=== PATIENT | male | born 1985 | race Caucasian/White ===

== ENCOUNTER 2017-06-18 02:51 | Emergency (ER) | payer OTHER ==
[~2017-06-18] VITALS: Ht 175.3 cm; Wt 99.8 kg
--- OUTSIDE RECORDS SUMMARY | 2017-06-18 03:01 | External Medical Summary Rpt | CCD ---
Author Author , FELIPE Organization FELIPE Address Unknown Phone [email or web address] [facility] Care Team Providers Care Pony Worker Name Role Phone [facility] Unavailable Unavailable [facility], [facility] ALISON ANT, ALISON Unavailable Unavailable ANT MIGUEL VIC, MIGUEL VIC Unavailable Unavailable INDEPENDENT Unavailable Unavailable ANESTHESIOLOGIST, INDEPENDENT ANESTHESIOLOGIST KLEEDY CHANELL, Unavailable Unavailable KLEIMEYER CHANELL MINION REINIER, MINION Unavailable Unavailable REINIER GURVINDER KELLEY, GURVINDER Unavailable Unavailable KELLEY NEILS SANDRA, NEILS SANDRA Unavailable Unavailable ANDREW CELINE, Unavailable Unavailable [facility] Unavailable Unavailable OF [facility], [facility] [place], [facility] Unavailable Unavailable JAM [facility] Unavailable Unavailable AMBULANCE, [facility] Unavailable Unavailable AMBULANCE, [facility] [place] Unavailable Unavailable PHYSICIANS, [facility] [place] [facility] [place] Unavailable Unavailable ALTHEA, [facility] 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 GASTRITIS&G [place] ASTRODUODIT ALTHEA IS W/O MENTION HEMORR 15213 UNSPECIFIED 10-06-2014 [facility] [place] ARTHROPATHY ALTHEA ANKLE AND FOOT V1301 PERSONAL 10-06-2014 [facility] [place] URINARY ALTHEA CALCULI V1582 PERS HX 10-06-2014 [facility]. TOBACCO USE [facility] 7245 UNSPECIFIED 09-12-2014 [facility] 6824 CELLULITIS& 03-08-2014 INDEPENDENT ABSCESS OF HAND EXCEPT ANESTHESIOL OGIST FINGERS&[place] [address] SWELLING OF 03-07-2014 [facility]B [facility] 6826 CELLULITIS 03-05-2014 [facility] AND ABSCESS AMBULANCE OF LEG EXCEPT FOOT 13777 UNSPECIFIED 03-05-2014 MINION REINIER INFECTIVE ARTHRITIS SITE UNSPECIFIED 84111 PAIN IN 03-05-2014 [facility] [place], HAND AMBULANCE Procedures Procedure DOS Code Location Performer Comment RADEX 28429 TALA MIGUEL VIC ANKLE 5 LTH COMPLETE ORTHOPAE MINIMUM 3 VIEWS UNCLASSIF J3490 [facility] IED DRUGS [place] RADEX 14738 RADIOLOGY NEILS SANDRA SPINE 5 LUMBOSACR ASSOCIATE AL 2/3 S OF [facility] VIEWS ANES 79496 INDEPENDE HEREDIA INTEG 4 NT N ANT EXTREMITI ANESTHESI ES ANT OLOGIST TRUNK & PERINEUM NOS MRI UPPER 41758 RADIOLOGY ROEBKER EXTREM 4 JAM OTHER ASSOCIATE THAN JT S OF [facility] W/O & W/CONTRAS INITIAL 42683 [facility] 4 S DISEASE CELINE CARE/DAY 70 CONSULTAN MINUTES AMBULANCE A0428 RURAL/MET RURAL/MET SERVICE 4 RO RO BLS AMBULANCE AMBULANCE NONEMERGE NCY TRANSPORT RADEX 01242 MINION KLEIMEYER HAND 4 REINIER CHANELL MINIMUM 3 VIEWS ALS A0398 RURAL/MET RURAL/MET ROUTINE 4 RO RO DISPOSABL AMBULANCE AMBULANCE E SUPPLIES GROUND A0425 RURAL/MET RURAL/MET MILEAGE 4 RO RO PER AMBULANCE AMBULANCE STATUTE MILE INCISION 98252 ST [facility] & 4 [place] ANT DRAINAGE MED CTR ABSCESS COMPLICAT ED/MULTIP LE Encounters Encounter Start End Date Code Location Performer Type Date OFFICE 76346 [facility] 5 5 [place] VISIT 15 PHYSICIAN MINUTES S OFFICE 15455 TALA MIGUEL VIC CONSULTAT 5 5 LT ION ORTHOPAE NEW/ESTAB PATIENT [address] - 5 5 [place] EMERGENCY 29059 [facility] 5 5 [place] VISIT LOW/MODER SEVERITY OFFICE 45434 [facility] 5 5 [place] VISIT 15 PHYSICIAN MINUTES S EMERGENCY 67714 [facility] 4 [facility] [place] [facility] T VISIT MODERATE SEVERITY
--- OUTSIDE RECORDS SUMMARY | 2017-06-18 03:01 | External Medical Summary Rpt | CCD ---
Author Author , FELIPE Organization FELIPE Address Unknown Phone [email or web address] Care Team Providers Care Venetian Blind Tape Cutter Name Role Phone MARISOL KWA, MARISOL Unavailable Unavailable KWA [facility] Unavailable Unavailable [facility], [facility] ALISON ANT, ALISON Unavailable Unavailable ANT MIGUEL VIC, MIGUEL VIC Unavailable Unavailable INDEPENDENT Unavailable Unavailable ANESTHESIOLOGIST, INDEPENDENT ANESTHESIOLOGIST KLEEDY CHANELL, Unavailable Unavailable KLEEDY CHANELL MINION REINIER, MINION Unavailable Unavailable REINIER GURVINDER KELLEY, GURVINDER Unavailable Unavailable KELLEY NEILS SANDRA, NEILS SANDRA Unavailable Unavailable ANDREW CELINE, Unavailable Unavailable [facility] Unavailable Unavailable OF [facility], [facility] [place], AUTUMN Unavailable Unavailable CHLOE [facility] Unavailable Unavailable AMBULANCE, [facility] Unavailable Unavailable AMBULANCE, [facility] [place] Unavailable Unavailable PHYSICIANS, [facility] [place] [facility] [place] Unavailable Unavailable ALTHEA, STMarco MEJIA ALTHEA Purpose Continuity of Care Document - 09-25-2013 through 2016 Problems Code Diagnosis DOS Provider Status 6819 11-13-2014 [facility] [place] [facility] 58020 11-13-2014 [facility] [place] [facility] 7962 11-13-2014 [facility] [place] PHYSIC[facility]ANS 71325 10-09-2014 [facility]TH[facility] 21555 10-06-[address] [facility] [place] ALTHEA 13410 10-06-2014 [facility] [place] ALTHEA V1301 10-06-2014 [facility] [place] ALTHEA V1582 10-06-2014 [facility] [place] ALTHEA 7245 09-12-2014 [facility] 6824 03-08-2014 INDEPENDENT ANESTHESIOL OGIST 86566 03-07-2014 [facility] 6826 03-05-2014 [facility] 06156 03-05-2014 MINION REINIER 44846 03-05-2014 [facility] Procedures Procedure DOS Code Location Performer Comment 82204 TALA MIGUEL VIC 5 [facility] ORTHOPAE J3490 [facility] [address] [place] [address] RADIOLOGY NEILS SANDRA 5 ASSOCIATE S OF [facility] 84118 INDEPENDE MARISOL 4 NT KWA ANESTHESI OLOGIST 58218 RADIOLOGY ROEBKER 4 JAM ASSOCIATE S OF [facility] 87351 INFECTIOU ANDREW 4 S DISEASE [facility] A0398 RURAL/MET RURAL/MET 4 RO RO AMBULANCE AMBULANCE A0425 RURAL/MET RURAL/MET 4 RO RO AMBULANCE AMBULANCE A0428 RURAL/MET RURAL/MET 4 RO RO AMBULANCE AMBULANCE 29554 JESSE RANDOLPH 4 REINIER CHANELL 37862 [facility] [place] [facility] Encounters Encounter Start End Date Code Location Performer Type Date [facility] - 5 [place]
--- OUTSIDE RECORDS SUMMARY | 2017-06-18 03:01 | External Medical Summary Rpt | CCD ---
Author Author , FELIPE Organization FELIPE Address Unknown Phone [email or web address] Care Team Providers Care Licensed Loan Officer Name Role Phone MARISOL KWA, MARISOL Unavailable [...] [facility] Unavailable Unavailable OF [facility], [facility] [place], AUTUMN Unavailable Unavailable CHLOE [facility] Unavailable Unavailable AMBULANCE, [facility] Unavailable Unavailable AMBULANCE, [facility] [place] Unavailable Unavailable PHYSICIANS, [facility] [place] [facility] [place] Unavailable Unavailable ALTHEA, STMarco MEJIA ALTHEA Purpose Continuity of Care Document - 09-25-2013 through 2016 Problems Code Diagnosis DOS Provider Status 6819 11-13-2014 [facility] [place] [facility] 51482 11-13-2014 [facility] [place] [facility] 7962 11-13-2014 [facility] [place] [facility] 84138 10-09-2014 [facility] 69117 10-06-[address] [facility] [place] ALTHEA 05388 10-06-[address] [facility] [place] ALTHEA V1301 10-06-[address] [facility] [place] ALTHEA V1582 10-06-[address] [facility] [place] ALTHEA 7245 09-12-2014 [facility] 6824 03-08-2014 INDEPENDENT ANESTHESIOL OGIST 52485 03-07-2014 [facility] 6826 03-05-2014 [facility] AMBULANCE 74925 03-05-2014 MINION REINIER 09866 03-05-2014 [facility] AMB[facility]ANCE Procedures Procedure DOS Code Location Performer Comment 97497 TALA MIGUEL VIC 5 [facility] ORTHOPAE J3490 [facility] [address] [place] [address] RADIOLOGY NEILS SANDRA 5 ASSOCIATE S OF [facility] 53170 INDEPENDE MARISOL 4 NT KWA ANESTHESI OLOGIST 75123 RADIOLOGY ROEBKER 4 JAM ASSOCIATE S OF [facility] 39697 INFECTIOU ANDREW [address] [facility] A0398 RURAL/MET RURAL/MET 4 RO RO AMBULANCE AMBULANCE A0425 RURAL/MET RURAL/MET 4 RO RO AMBULANCE AMBULANCE A0428 RURAL/MET RURAL/MET 4 RO RO AMBULANCE AMBULANCE 96578 JESSE RANDOLPH 4 REINIER CHANELL 78831 [facility] [place] [facility] Encounters Encounter Start End Date Code Location Performer Type Date [facility] - 5 [place]
--- OUTSIDE RECORDS SUMMARY | 2017-06-18 03:01 | External Medical Summary Rpt | CCD ---
Author Author , FELIPE Organization FELIPE Address Unknown Phone [email or web address] Care Team Providers Care Cv Tech Name Role Phone [facility] Unavailable Unavailable [facility], [facility] ALISON ANT, ALISON Unavailable Unavailable ANT MIGUEL VIC, MIGUEL VIC Unavailable Unavailable INDEPENDENT Unavailable Unavailable ANESTHESIOLOGIST, INDEPENDENT ANESTHESIOLOGIST KLEEDY CHANELL, Unavailable Unavailable KLEIMEYER CHANELL MINION REINIER, MINION Unavailable Unavailable REINIER GURVINDER KELLEY, GURVINDER Unavailable Unavailable KELLEY NEILS SANDRA, NEILS SANDRA Unavailable Unavailable ANDREW CELINE, Unavailable Unavailable [facility] Unavailable Unavailable OF [facility], 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 GASTRITIS&G [place] ASTRODUODIT ALTHEA IS W/O MENTION HEMORR 40149 UNSPECIFIED 10-06-2014 [facility] [place] ARTHROPATHY ALTHEA ANKLE AND FOOT V1301 PERSONAL 10-06-2014 [facility] [place] URINARY ALTHEA CALCULI V1582 PERS HX 10-06-2014 [facility]. TOBACCO USE [facility] 7245 UNSPECIFIED 09-12-2014 [facility] 6824 CELLULITIS& 03-08-2014 INDEPENDENT ABSCESS OF HAND EXCEPT ANESTHESIOL OGIST FINGERS&R[place] [address] SWELLING OF 03-07-[address] [facility] [address] [facility] 6826 CELLULITIS 03-05-2014 [facility] AND ABSCESS AMBULANCE OF LEG EXCEPT FOOT 04305 UNSPECIFIED 03-05-2014 MINION REINIER INFECTIVE ARTHRITIS SITE UNSPECIFIED 43024 PAIN IN 03-05-2014 [facility] JOINT, HAND AMBULANCE Procedures Procedure DOS Code Location Performer Comment RADEX 46661 TALA MIGUEL VIC ANKLE 5 LTH COMPLETE ORTHOPAE MINIMUM 3 VIEWS UNCLASSIF J3490 [facility] IED DRUGS 5 [place] RADEX 69903 RADIOLOGY NEILS SANDRA SPINE 5 LUMBOSACR ASSOCIATE AL 2/[address] [facility] VIEWS ANES 38136 INDEPENDE HEREDIA INTEG 4 NT N ANT EXTREMITI ANESTHESI ES ANT OLOGIST TRUNK & PERINEUM NOS MRI UPPER 66693 RADIOLOGY ROEBKER EXTREM 4 JAM OTHER ASSOCIATE THAN JT S OF [facility] W/O & W/CONTRAS INITIAL 77517 [facility] 4 S DISEASE CELINE CARE/DAY 70 CONSULTAN MINUTES AMBULANCE A0428 RURAL/MET RURAL/MET SERVICE 4 RO RO BLS AMBULANCE AMBULANCE NONEMERGE NCY TRANSPORT RADEX 20864 MINION KLEIMEYER HAND 4 REINIER CHANELL MINIMUM 3 VIEWS ALS A0398 RURAL/MET RURAL/MET ROUTINE 4 RO RO DISPOSABL AMBULANCE AMBULANCE E SUPPLIES GROUND A0425 RURAL/MET RURAL/MET MILEAGE 4 RO RO PER AMBULANCE AMBULANCE STATUTE MILE INCISION 42422 [facility] & 4 [place] ANT DRAINAGE MED CTR ABSCESS COMPLICAT ED/MULTIP LE Encounters Encounter Start End Date Code Location Performer Type Date OFFICE 90648 [facility] 5 5 [place] VISIT 15 PHYSICIAN MINUTES S OFFICE 35801 TALA MIGUEL VIC CONSULTAT 5 5 LT ION ORTHOPAE NEW/ESTAB PATIENT [address] - 5 5 [place] EM[place] 42994 [facility] 5 5 [place] VISIT LOW/MODER SEVERITY OFFICE 58695 [facility] 5 5 [place] VISIT 15 PHYSICIAN MINUTES S EMERGENCY 32145 [facility] [place] [facility] VISIT MODERATE SEVERITY
--- OUTSIDE RECORDS SUMMARY | 2017-06-18 03:02 | External Medical Summary Rpt ---
Author Author FELIPE Bolden, [employer] Organization [employer] Address Unknown Phone Unavailable Results STRP A DNA Results Observa Value Referen Units Interpr Notes Date tion ce etation Range Group A Throat No No No No Jun 13 informa informa informa informa 2014 Strepto tion in tion in tion in tion in 1:04 PM coccus source source source source specime data data data data n Group A Negativ No No No No Jun 13 e informa informa informa informa 2014 Strepto tion in tion in tion in tion in 1:04 PM coccus source source source source DNA data data data data Group A Negativ No No No No Jun 13 e for informa informa informa informa 2014 Strepto Group A tion in tion in tion in tion in 1:04 PM coccus source source source source Interp Strepto data data data data coccus DNA. A negativ e result does not rule out the presenc e of Group A Strepto coccus DNA in concent rations below the level of detecti on by the assay.T est methodo logy by DNA probe. The perform ance charact eristic s of this test were validat ed by [facility] are Laborat ory. This laborat ory is authori benny under the Clinica l Laborat ory Improve ment Amendme nts (CLIA) as qualifi ed to perform high-co mplexit y testing . Complia nce stateme nt is availab le in the Laborat ory. Group A Negativ No No No No Jun 13 e informa informa informa informa 2014 Strepto tion in tion in tion in tion in 1:04 PM coccus source source source source Interp data data data data Strep Scn Observa Value Referen Units Interpr Notes Date tion ce etation Range Strep Negativ No No No No Jun 12 Screen e informa informa informa informa 2015 tion in tion in tion in tion in 1:03 PM source source source source data data data data XR LUMBAR SPINE AP AND LATERAL Observa Value Referen Units Interpr Notes Date tion ce etation Range Three No No No No Sep 12 views informa informa informa informa 2015 XR tion in tion in tion in tion in 3:46 PM LUMBAR source source source source SPINE data data data data AP AND LATERAL Sep 12, 2014 03:47:2 6 PM\.br\ \.br\HI STORY: -BACK PAIN.\. br\\.br \Compar e: CT abdomen and pelvis November 18, 2011\.b r\Sligh t anterio r wedging of T11 unchang ed\.br\ \.br\Im pressio n: No acute fractur e or osseous destruc tion. BMP Observa Value Referen Units Interpr Notes Date tion ce etation Range Sodium 139 136 - mmol/L No No Mar 08 145 informa informa 2013 tion in tion in 7:48 AM source source data data Potassi 4.1 3.5 - mmol/L No No Mar 08 um 5.0 informa informa 2013 [Moles/ tion in tion in 7:48 AM volume] source source in data data Serum or Plasma Chlorid 99 98 - mmol/L No No Mar 08 e 107 informa informa 2013 tion in tion in 7:48 AM source source data data Carbon 31 22 - 29 mmol/L High No Mar 08 dioxide informa 2013 , total tion in 7:48 AM source [Moles/ data volume] in Serum or Plasma Anion 9 7 - 16 mmol/L No No Mar 08 Gap informa informa 2013 tion in tion in 7:48 AM source source data data CALCIUM 9.3 8.6 - mg/dL No No Mar 08 .TOTAL 10.2 informa informa 2013 tion in tion in 7:48 AM source source data data Glucose 84 74 - mg/dL No No Mar 08 Lvl 100 informa informa 2013 tion in tion in 7:48 AM source source data data BUN 9 6 - 20 mg/dL No No Mar 08 informa informa 2014 tion in tion in 7:48 AM source source data data Creatin 1.00 0.67 - mg/dL No No Mar 08 ine 1.30 informa informa 2014 tion in tion in 7:48 AM source source data data MRI HAND RIGHT W WO CONTRAST Observa Value Referen Units Interpr Notes Date tion ce etation Range MRI No No No No Mar 07 RIGHT informa informa informa informa 2014 HAND tion in tion in tion in tion in 2:34 PM WITHOUT source source source source AND data data data data WITH CONTRAS T\.br\\ .br\03/07\. br\\.br \Compar e: Plain radiogr aphs from March 05, 2014\.b r\\.br\ CLINICA L HISTORY : right hand swellin g and redness for one week.\. br\\.br \Findin gs;\.br \\.br\P ostcont rast images perform ed with 20 mL MultiHa nce\.br \\.br\T here is promine nt diffuse subcuta neous edema and swellin g over the dorsum\ .br\of the hand\.b r\milly tible with celluli tis.\.b r\\.br\ There is a multilo culated fluid collect ion seen dorsall y extendi ng from\.b r\just below the base to\.br\ the midshaf t of the third and fourth metacar pals. The fluid collect ion\.br \measur es 4.5 cm\.br\ cranioc audal x 2.9 cm transve rse x 1.6 cm AP. There is an enhanci ng rim\.br \and slight\ .br\mul tilocul ation. It is predomi nantly dorsal to the extenso r tendons of the\.br \third and fourth\ .br\dig its and extends adjacen t to the second digit extenso r tendons as well.\. br\It is highly\ .br\mitchel picious for abscess .\.br\\ .br\Mar row signal is normal in the osseous structu res with no evidenc e of\.br\ osteomy elitis. No\.br\ evidenc e of increas ed joint fluid or septic arthrit is. Laxer tendons \.br\ap pear normal. Median\ .br\ner ve normal. \.br\\. br\The extenso r tendons themsel ves are intact\ .br\\.b r\IMPRE SSION:\ .br\\.b r\4.5 x 2.9 x 1.6 cm fluid collect ion in the dorsum of the right hand\.b r\predo minatel y at the level\. br\of the base to the midshaf t of the third and fourth metacar pals and\.br \immedi ately dorsal and\.br \encirc ling the third and fourth extenso r tendons . The fluid collect ion\.br \lies approxi mately 8 to\.br\ 9 mm below the skin surface and is highly suspici ous for abscess .\.br\\ .br\Dif fuse celluli tis of the dorsum of the hand\.b r\\.br\ No evidenc e of osteomy elitis or septic arthrit is\.br\ \.br\ is report was called to the patient 's nurse shereen mobleyi lin this\.b r\readi ng by Dr. Yi \.br\at 2:49 p.m. SHAYNERUPESH Observa Value Referen Units Interpr Notes Date ti ce etation Range Hepatit NEG NEGATIV No No Perform Mar 09 is A E informa informa ed at: 2013, tion in tion in 7:51 PM Total-S source source [facility] OLS data data [facility]\.br\ [address], [address]\.br \ [place] [address] IR PICC INSERTION EQUAL OR > 5 YEARS Observa Value Referen Units Interpr Notes Date tion ce etation Range Shaina No No No No Mar 06 Markwor informa informa informa informa 2013, tion in tion in tion in tion in 4:16 PM PAHairC, source source source source dictati data data data data ng for Dr. Jarred Gonzales. \.br\\. br\DATE : Mar 06, 2014 04:16:5 4 PM:\.br \\.br\P ROCEDUR E: Ultraso und and fluoros copic-g uided PICC placeme nt.\.br \\.br\C LINICAL INDICAT IONS: 20-year -old male with history of IV drug use and\.br \infect ion. PICC line\.b r\reque sted for long-te rm IV antibio tics.\. br\\.br \FINDIN GS:\.br \1. Procedu re perform ed by Shaina lopez PA-C, with Dr. Jarred Gonzales\ .br\sup ervisin g.\.br\ 2. Ultraso und guidanc e was used to identif y the left upper arm veins. The\.br \left basilic vein\.b r\found to be widely patent. Using all element s of maximal sterile barrier \.br\te chnique . and after\. br\loca l anesthe rowdy was adminis tered, a 21-gaug e needle was used to punctur e\.br\t he left basilic \.br\ve in. Guidewi re success fully inserte d. Needle removed . Over the\.br \guidew isabelle, an introdu cer\.br \sheath was placed. The introdu cer and wire were removed , and through the\.br \sheath , a 4-Frenc h,\.br\ single lumen PICC was placed and advance d with the tip of the cathete r\.br\p osition ed within the\.br \cavoat rial junctio n as documen david with spot film imaging . Cathete r was cut\.br \to 40 cm prior to\.br\ inserti on. The sheath was removed . The cathete r was cut to length, \.br\as pirated , and flushed \.br\ap propria tely. The PICC was secured to the skin with a Stat-Lo ck device. A\.br\s terile dressin g was\.br \applie d.\.br\ 3. The patient tolerat ed the procedu re well without immedia te\.br\ complic ations. \.br\\. br\Tota l Fluoros copic Time: 0.2 minutes \.br\\. br\IMPR ESSION: \.br\1. Success ful, uncompl icated 4-Frenc h, single lumen PICC placeme nt with\.b r\ultra sound and\.br \fluoro scopic guidanc e.\.br\ \.br\No te: A permane nt recorde d image of the U/S image was created .\.br\\ .br\Dayna lopez PA-C/ Jarred Gonzales M.D. IR ULTRASOUND GUIDED VASCULAR ACCESS Observa Value Referen Units Interpr Notes Date tion ce etation Range Shaina No No No No Mar 06 Phill informa informa informa informa 2013, tion in tion in tion in tion in 4:16 PM LULA, source source source source dictati data data data data ng for Dr. Jarred Gonzales. \.br\\. br\DATE : Mar 06, 2014 04:16:5 4 PM:\.br \\.br\P ROCEDUR E: Ultraso und and fluoros copic-g uided PICC placeme nt.\.br \\.br\C LINICAL INDICAT IONS: 20-year -old male with history of IV drug use and\.br \infect ion. PICC line\.b r\reque sted for long-te rm IV antibio tics.\. br\\.br \FINDIN GS:\.br \1. Procedu re perform ed by Shaina lopez PA-C, with Dr. Jarred Gonzales\ .br\sup ervisin g.\.br\ 2. Ultraso und guidanc e was used to identif y the left upper arm veins. The\.br \left basilic vein\.b r\found to be widely patent. Using all element s of maximal sterile barrier \.br\te chnique . and after\. br\loca l anesthe rowdy was adminis tered, a 21-gaug e needle was used to punctur e\.br\t he left basilic \.br\ve in. Guidewi re success fully inserte d. Needle removed . Over the\.br \guidew isabelle, an introdu cer\.br \sheath was placed. The introdu cer and wire were removed , and through the\.br \sheath , a 4-Frenc h,\.br\ single lumen PICC was placed and advance d with the tip of the cathete r\.br\p osition ed within the\.br \cavoat rial junctio n as documen david with spot film imaging . Cathete r was cut\.br \to 40 cm prior to\.br\ inserti on. The sheath was removed . The cathete r was cut to length, \.br\as pirated , and flushed \.br\ap propria tely. The PICC was secured to the skin with a Stat-Lo ck device. A\.br\s terjodi sanderson g was\.br \applie d.\.br\ 3. The patient tolerat ed the procedu re well without immedia te\.br\ complic ations. \.br\\. br\Tota l Fluoros copic Time: 0.2 minutes \.br\\. br\IMPR ESSION: \.br\1. Success ful, uncompl icated 4-Frenc h, single lumen PICC placeme nt with\.b r\ultra sound and\.br \fluoro scopic guidanc e.\.br\ \.br\No te: A permane nt recorde d image of the U/S image was created .\.br\\ .br\Lis kaelyn lopez PA-C/ Jarred Gonzales M.D. Vanco Tr Observa Value Referen Units Interpr Notes Date tion ce etation Range Vanco 12.7 5.0 - mcg/mL High No Mar 06 Tr 10.0 informa 2013 tion in 1:35 PM source data HCV Filomena-SOLS Observa Value Referen Units Interpr Notes Date tion ce etation Range Hepatit 3 No No No Test Mar 10 is C informa informa informa Methodo 2014 Virus tion in tion in tion in logy: 7:47 AM Genotyp source source source [place] e-SOLS data data data RealTim e HCV Genotyp e II Assay.\ .br\Per formed at: [facility]\.br\ [address], [address]\.br \ [place] [address] HCV QT GR-SOLS Observa Value Referen Units Interpr Notes Date tion ce etation Range HCV RNA 53797 <15 IU/mL High No Mar 07 informa 2014 Quant-S tion in 7:26 PM OLS source data HCV RNA 4.83 <1.18 No High \.br\Mar 07 informa is test 2013 Log-ANNEMARIE tion in 7:26 PM S source utilize data s the [place] FDA approve d Yvette HCV Test Kit by RT-PCR. \.br\Pe rformed at: [facility]\.br\ [address], [address]\.br \ [place] [address] Hemogram Observa Value Referen Units Interpr Notes Date tion ce etation Range LEUKOCY 5.9 4.0 - x10(3)/ No No Mar 06 INES 11.0 mcL informa informa 2013 tion in tion in 6:31 AM source source data data Erythro 4.39 4.30 - x10(6)/ No Mar 06 cytes 5.81 mcL informa informa 2013 [#/volu tion in tion in 6:31 AM me] in source source Blood data data by Automat ed count Hemoglo 13.1 13.5 - gm/dL Low No Mar 06 bin 17.1 informa 2014 [Mass/v tion in 6:31 AM olume] source in data Blood Hematoc 37.4 38.9 - % Low No Mar 06 rit 51.6 informa 2014 [Volume tion in 6:31 AM source Fractio data n] of Blood by Automat ed count Erythro 85.3 82.5 - fL No Mar 06 cyte 99.8 informa informa 2014 mean tion in tion in 6:31 AM corpusc source source ular data data volume [Entiti c volume] by Automat ed count Erythro 29.8 27.0 - pg No No Mar 06 cyte 34.3 informa informa 2014 mean tion in tion in 6:31 AM corpusc source source ular data data hemoglo bin [Entiti c mass] by Automat ed count Erythro 34.9 32.1 - gm/dL No Mar 06 cyte 35.3 informa informa 2014 mean tion in tion in 6:31 AM corpusc source source ular data data hemoglo bin concent ration [Mass/v olume] by Automat ed count Erythro 13.8 11.5 - % No Mar 06 cyte 15.0 informa informa 2013 distrib tion in tion in 6:31 AM ution source source width data data [Ratio] by Automat ed count Platele 229 144 - x10(3)/ No No Mar 06 ts 423 mcL informa informa 2013 [#/volu tion in tion in 6:31 AM me] in source source Blood data data by Automat ed count MPV 6.7 6.8 - fL Low No Mar 06 10.8 informa 2014 tion in 6:31 AM source data Hep Prf-Ac Observa Value Referen Units Interpr Notes Date tion ce etation Range Add to blood in lab Hepatit Negativ Negativ No No No Mar 06 is B e e informa informa informa 2014 virus tion in tion in tion in 8:11 AM surface source source source Ag data data data [Presen ce] in Serum by Immunoa ssay Hep B Negativ Negativ No No No Mar 06 Core e e informa informa informa 2014 IgM tion in tion in tion in 8:10 AM source source source data data data Hepatit Negativ Negativ No No No Mar 06 is A e e informa informa informa 2014 virus tion in tion in tion in 8:10 AM Ab source source source [Units/ data data data volume] in Serum by Radioim munoass ay (MEENA) Hep C Positiv Negativ No Abnorma High Mar 06 Ab e e informa l / 2013 tion in cutoff 8:44 AM source ratio data (>= 5, Archite ct Anti-HC V). [facility] are Laborat ory recomme nds collect ing a new specime n and testing for Hepatit is C RNA Quantit ative PCR to confirm positiv ity and provide a baselin e viral load for monitor ing treatme nt efficac y. DOA Reflex Observa Value Referen Units Interpr Notes Date tion ce etation Range Cannabi Absent 50 No No No Mar 05 noid ng/mL informa informa informa 2014 Metabol tion in tion in tion in 2:23 PM ite source source source data data data Benzodi Absent 200 No No No Mar 05 azepine ng/mL informa informa informa 2013 s tion in tion in ti in 2:23 PM source source source data data data Cocaine Absent 150 No No No Mar 05 ng/mL informa informa informa 2013 Metabol tion in tion in ti in 2:23 PM ite source source source data data data Opiate Presump 300 No Abnorma Confirm Mar 05 300 tive ng/mL informa l ation 2013 Pos tion in to 2:23 PM source follow data from referen ce lab. Barbitu Absent 200 No No No Mar 05 rates ng/mL informa informa informa 2013 tion in tion in tion in 2:23 PM source source source data data data Ampheta Absent 500 No No No Mar 05 mines ng/mL informa informa informa 2013 tion in tion in ti in 2:23 PM source source source data data data Phencyc Absent 25 No No No Mar 05 lidine ng/mL informa informa informa 2013 tion in tion in tion in 2:23 PM source source source data data data Methado Absent 300 No No No Mar 05 ne and ng/mL informa informa informa 2013 Metabol tion in tion in ti in 2:23 PM ite source source source data data data Oxycodo Presump 100 No Abnorma Confirm Mar 05 ne Lvl tive ng/mL informa l ation 2013 Pos tion in to 2:23 PM source follow data from [facility] ce lab. 6 AM Absent 10 No No No Mar 05 (Heroin ng/mL informa informa informa 2013 ) tion in tion in tion in 2:23 PM source source source data data data Bupreno Absent 5 ng/mL No No No Mar 05 rphine informa informa informa 2014 Lvl tion in tion in tion in 2:23 PM source source source data data data Creatin 116.9 No mg/dL No \.br\Gr Mar 05 ine Urn informa informa eater 2013 tion in tion in than 2:23 PM source source 20: data data Consist ent with valid sample\ .br\Gre ater than 2 but less than 20: Possibl e dilutio n\.br\L ess than 2: Questio nable valid sample Procedu These No No No No Mar 05 re Note drug informa informa informa informa 2014 Reflex classes tion in tion in tion in tion in 2:23 PM have source source source source been data data data data screene d by renaldo laguna and are for medical purpose s only. The results should not be used for non-med ical purpose s. U OPIA CON-SOLS Observa Value Referen Units Interpr Notes Date tion ce etation Range 6-AM NEG Cutoff: ng/mL No Perform Feb 9 (Heroin 5 informa ed at: 2013 )-SOLS tion in 12:21 source [facility] PM data [facility]\.br\ [address], [address]br \ [place] [address] U NEG Cutoff: ng/mL No No Feb 9 Codeine 50 informa informa 2014 -SOLS tion in tion in 12:21 source source PM data data U NEG Cutoff: ng/mL No No Feb 9 Hydroco 50 informa informa 2014 done-SO tion in tion in 12:21 LS source source PM data data U NEG Cutoff: ng/mL No No Feb 9 Hydromo 50 informa informa 2013 rphone- tion in tion in 12:21 SOLS source source PM data data U 2097 Cutoff: ng/mL High No Feb 9 Morphin 50 informa 2013 e-SOLS tion in 12:21 source PM data U NEG Cutoff: ng/mL No No Feb 9 Oxycodo 50 informa informa 2013 ne-SOLS tion in tion in 12:21 source source PM data data U NEG Cutoff: ng/mL No No Feb 9 Oxymorp 50 informa informa 2013 fran-SO tion in tion in 12:21 LS source source PM data data U NEG Cutoff: ng/mL No No Feb 9 Norhydr 50 informa informa 2014 ocodone tion in tion in 12:21 source source PM data data U 94 Cutoff: ng/mL High No Feb 9 Noroxyc 50 informa 2014 odone-S tion in 12:21 OLS source PM data XR HAND RIGHT PA LATERAL AND OBLIQUE Observa Value Referen Units Interpr Notes Date tion ce etation Range XR HAND No No No No Feb 6 RIGHT informa informa informa informa 2014 PA tion in tion in tion in tion in 8:40 AM LATERAL source source source source AND data data data data OBLIQUE Mar 05, 2014 09:02:4 0 AM\.br\ \.br\Cl inical: -infect ion\.br \\.br\C OMPARIS ONS: None.\. br\\.br \FINDIN GS:\.br \\.br\T here is normal alignme nt of the right hand. There is diffuse soft tissue\ .br\swe lling of the right\. br\hand , most pronoun jodee along the dorsum. The joint spaces are maintai vivi.\.b r\There are no\.br\ radiopa que foreign bodies. There is no subcuta neous gas. There are no\.br\ acute fractur es or\.br\ osseous erosion s.\.br\ \.br\IM PRESSIO N:\.br\ \.br\Di ffuse soft tissue swellin g of the right hand. There is no underly ing gas\.br \or radiopa que\.br \foreig n bodies. CBC Observa Value Referen Units Interpr Notes Date tion ce etation Range LEUKOCY 10.9 4.0 - x10(3)/ No No Mar 05 INES 11.0 mcL informa informa 2013 tion in tion in 12:04 source source AM data data Erythro 5.32 4.30 - x10(6)/ No Mar 05 cytes 5.81 mcL informa informa 2013 [#/volu tion in tion in 12:04 me] in source source AM Blood data data by Automat ed count Hemoglo 16.0 13.5 - gm/dL No Mar 05 bin 17.1 informa informa 2013 [Mass/v tion in tion in 12:04 olume] source source AM in data data Blood Hematoc 45.8 38.9 - % No No Mar 05 rit 51.6 informa informa 2013 [Volume tion in tion in 12:04 source source AM Fractio data data n] of Blood by Automat ed count Erythro 86.1 82.5 - fL No Mar 05 cyte 99.8 informa informa 2013 mean tion in tion in 12:04 corpusc source source AM ular data data volume [Entiti c volume] by Automat ed count Erythro 30.1 27.0 - pg No Mar 05 cyte 34.3 informa informa 2013 mean tion in tion in 12:04 corpusc source source AM ular data data hemoglo bin [Entiti c mass] by Automat ed count Erythro 35.0 32.1 - gm/dL No No Mar 05 cyte 35.3 informa informa 2013 mean tion in tion in 12:04 corpusc source source AM ular data data hemoglo bin concent ration [Mass/v olume] by Automat ed count Erythro 14.1 11.5 - % No No Mar 05 cyte 15.0 informa informa 2013 distrib tion in tion in 12:04 ution source source AM width data data [Ratio] by Automat ed count Platele 293 144 - x10(3)/ No No Mar 05 ts 423 mcL informa informa 2013 [#/volu tion in tion in 12:04 me] in source source AM Blood data data by Automat ed count MPV 6.7 6.8 - fL Low No Mar 05 10.8 informa 2013 tion in 12:04 source AM data Auto Diff Observa Value Referen Units Interpr Notes Date tion ce etation Range Neutrop 81.3 No % No No Mar 05 hils informa informa informa 2013 [#/volu tion in tion in tion in 12:04 me] in source source source AM Blood data data data by Automat ed count Lymphoc 11.4 No % No No Mar 05 ytes informa informa informa 2013 [#/volu tion in tion in tion in 12:04 me] in source source source AM Blood data data data by Automat ed count Monocyt 6.4 No % No No Mar 05 es informa informa informa 2013 [#/volu tion in tion in tion in 12:04 me] in source source source AM Blood data data data by Automat ed count Eos 0.5 No % No No Mar 05 Percent informa informa informa 2013 tion in tion in tion in 12:04 source source source AM data data data Baso 0.4 No % No No Mar 05 Percent informa informa informa 2014 tion in tion in tion in 12:04 source source source AM data data data Neut# 8.9 1.8 - x10(3)/ High No Mar 05 7.7 mcL informa 2013 tion in 12:04 source AM data Lymph# 1.2 0.6 - x10(3)/ No No Mar 05 4.8 mcL informa informa 2013 tion in tion in 12:04 source source AM data data Roseau# 0.7 0.0 - x10(3)/ No No Mar 05 1.3 mcL informa informa 2013 tion in tion in 12:04 source source AM data data Eos# 0.1 0.0 - x10(3)/ No No Mar 05 0.5 mcL informa informa 2013 tion in tion in 12:04 source source AM data data Baso# 0.0 0.0 - x10(3)/ No No Mar 05 0.2 mcL informa informa 2013 tion in tion in 12:04 source source AM data data XR KNEE RIGHT AP LAT INT EXT OBLIQUES AND SUNRISE Observa Value Referen Units Interpr Notes Date tion ce etation Range 09/28/19 No No No No Sep 28 14\.br\ informa informa informa informa 2013 \.br\Fi tion in tion in tion in ti in 7:47 PM ve-view source source source source right data data data data knee exam:\. br\\.br \HISTOR Y: Clinica l celluli tis with recent progres jb of clinica l symptom s.\.br\ No compari son\.br \studie s.\.br\ \.br\Si gnifica nt diffuse celluli tis type inflamm atory changes involve the right\. br\knee with greates t\.br\i nvolvem ent in the prepate llar region. Focal prepate llar effusio n is not\.br \exclud ed. No focal\. br\frac ture or bony destruc tive process . If the patient has progres sive\.b r\clini citlaly symptom s, advise\ .br\fol lowup MR imaging with and without contras t\.br\\ .br\IMP RESSION : Signifi cant celluli tis type inflamm atory soft tissue changes \.br\of the right knee. No\.br\ focal fractur e.
--- OUTSIDE RECORDS SUMMARY | 2017-06-18 03:02 | External Medical Summary Rpt | CCD ---
Author Author , FELIPE WANG Address Unknown Phone [email or web address] Name Relationship Address Phone ALINA, Next Of Kin Unknown Unavailable PRANEETH Immunization Name Date Rout CVX Reac Dose Comm Prov Is Faci e tion ent ider Refu lity Give sed n Hep 07-1 52 999 Hist 1005 No 1005 A, 2-20 oric 00 00 adul 14 al t Info rmat ion - Sour ce Unsp ecif ied Hep 07-0 Intr 43 999 Hist 1005 No 1005 B, 8-20 amus oric 00 00 adul 14 cula al t r Info rmat ion - Sour ce Unsp ecif ied Hep 02-2 Intr 8 999 Hist H157 No H157 B, 6-19 amus oric ped/ 97 cula al adol r Info rmat ion - Sour ce Unsp ecif ied
--- OUTSIDE RECORDS SUMMARY | 2017-06-18 03:02 | External Medical Summary Rpt ---
[...] of this test were validat ed by [facility] are Laborat ory. This laborat ory is [...] OLS data data [facility] [address], [address] \ [place] [address] IR PICC INSERTION EQUAL OR > 5 [...] Genotyp e II Assay.\ .br\Per formed at: [facility]\ [address], [address] \ [place] [address] HCV QT GR-SOLS Observa Value Referen Units Interpr Notes Date tion ce etation Range HCV RNA 49304 <15 IU/mL High No Mar 07 informa 2014 Quant-S tion in 7:26 PM OLS source data HCV RNA 4.83 <1.18 No High \.br\Mar 07 informa is test 2013 Log-ANNEMARIE tion in 7:26 PM S source utilize data s the [place] FDA approve d Yvette HCV Test Kit by RT-PCR. \.br\Pe rformed at: [facility]\ [address], [address] \ [place] [address] Hemogram Observa Value Referen Units Interpr Notes [...] data (>= 5, Archite ct Anti-HC V). [facility] are Laborat ory recomme nds collect ing [...] to 2:23 PM source follow data from [facility] lab. 6 AM Absent 10 [...] [facility] PM data [facility]\ [address], [address] \ [place] [facility] [place] [address] U NEG Cutoff: ng/mL No No Feb [...] in 12:04 source source AM data data [place]# 0.7 0.0 - x10(3)/ No No Mar [...]
--- OUTSIDE RECORDS SUMMARY | 2017-06-18 03:02 | External Medical Summary Rpt | CCD ---
Author Author , FELIPE WANG Address Unknown Phone [email or web address] Support Name Relationship Address Phone ALINA, Next [...]
[2017-06-18 04:08] LABS: URINE BILIRUBIN - DIPSTICK NEGATIVE (NEG); URINE BLOOD TRACE-INTACT (NEG)
[2017-06-18 04:10] LABS: LYMPH # 1.7 K/mm3 (0.7-4.5); LYMPH % 26.1 % (10-50)
[2017-06-18 04:16] LABS: BUN 10 mg/dL (7-18)
[2017-06-18 04:17] LABS: GFR (ESTIMATED) 78 ML/MIN (>60)
[2017-06-18 04:18] LABS: AMPHETAMINES/METAMPHETAMINES NEGATIVE ng/mL (<1000)
--- NOTE | 2017-06-18 04:26 | Emergency Room Report ---
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 N Clinical Suspician of Infection? N Mental Status: 1 - Regular (Normal Baseline) Sepsis Risk:Possible Sepsis Risk Have you (or family members/close friends) recently traveled outside the [place]? N If Yes, where/when: Have you had exposure to infectious disease within the past month? N TB? Other? Specify: Source patient, RN notes reviewed, family, old records Exam Limitations no limitations Comment pt with feeling funny and inc hr after energy drinks tonight Cardiac Chest Pain Chest pain indicative of cardiac No Timing/Duration this evening Severity moderate ALLERGIES Coded Allergies: No Known Allergies (06/18/17) Home Medications Reported Medications No Known Home Medications History Medical History General CAD? No Angina: No NV: No Hypertension? No Hyperlipidemia? No CHF? No DVT? No PE? No COPD? No Asthma? No Anemia? No GERD? No Gastric ulcers? No GI Bleed? No Hernia? No Thyroid Problems? No Hypothyroidism? No CVA? No Seizures? No Diabetes? No Renal Insuffiency? No End Stage Renal Disease? No UTI? No Stones? No BPH? No GB Disease: No Nephritic Syndrome? No Asplenia? No Hepatitis? No Sickle Cell Disease? No Arthritis? No Migraines? No Cataracts? No Glaucoma? No MRSA? No HIV? No TB? No Anxiety? No Depression? No Cancer? No More? No Immunization Hx DT/Tetanus Unknown Surgical Hx Previous Surgery?Y PINS IN [place] Social History Smoking Hx Smoker: Never Smoker Tobacco: No Alcohol Alcohol: No Drugs none Review of Systems All Other Systems Reviewed and Negative Constitutional denies fever Eyes denies drainage ENT denies: ear discharge, epistaxis, throat pain. Respiratory denies cough, denies shortness of breath, denies wheezing Cardiovascular see HPI, denies chest pain, palpitations Gastrointestinal denies abdominal pain, denies diarrhea, denies vomiting Genitourinary denies: dysuria, frequency, hesitancy, hematuria. Musculoskeletal denies back pain, denies joint pain, denies joint swelling, denies neck pain Skin denies rash Psychiatric/Neurological denies headache, denies seizure Physical Exam Vital Signs Vital Signs Date Time Temp Pulse Resp B/P Pulse O2 O2 Flow FiO2 Ox Delivery Rate 06/18 0406 105 18 157/100 96 06/18 0333 107 18 164/100 96 06/18 0254 98.0 128 20 162/96 98 - WBC >12,000 or <4,000 or 10% bands? 2 or more SIRS Criteria Met? B/P:157/100 MAP:118 Creatinine >2.0? UA output<0.5ml/kg/hr for 2 hrs? Platelet count >100,000? Lactate >2.0mmol/1? INR >1.2 or PTT > than 60 sec? Evidence of Organ Dysfunction? Provider documented clinical suspician of infection? N Sepsis Criteria Count: 2 Sepsis Risk: Possible Sepsis Risk General Appearance no apparent distress Eye Exam - bilateral eye PERRL, bilateral eye EOMI Ear, Nose, Throat normal ENT inspection Neck supple Respiratory Status No: respiratory distress. Lung Sounds bilateral: lungs clear. 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 No Results/Orders Laboratory Tests 06/18/17 0359: Opiates Screen NEGATIVE, Urine Methadone Screen NEGATIVE, Barbiturates NEGATIVE, Phencyclidine Screen NEGATIVE, Amphetamines Screen NEGATIVE, Benzodiazepines Screen NEGATIVE, Cocaine Screen NEGATIVE, Marijuana (THC) Screen POSITIVE H, Urine Color YELLOW, Urine Appearance CLEAR, Urine pH 7.0, Ur Specific [place] 1.020, Urine Protein NEGATIVE, Urine Ketones NEGATIVE, Urine Blood TRACE-INTACT, Urine Nitrate NEGATIVE, Urine Bilirubin NEGATIVE, Urine Urobilinogen 0.2, Ur Leukocyte Esterase NEGATIVE, Urine RBC 3-5, Urine Bacteria 1+, Urine Mucus 1+, Urine Glucose NEGATIVE 06/18/17 0345: Sodium 140, Potassium 3.1 L, Chloride 103, Carbon Dioxide 32, BUN 10, Creatinine 1.1, Estimated Creat Clear 137, Estimated GFR (MDRD) 78, Glucose 128 H, Calcium 9.0, Total Bilirubin 0.7, AST 52 H, ALT 113 H, Alkaline Phosphatase 55, Creatine Kinase 94, CK-MB (CK-2) Rel Index 1.2, CK and CKMB Interp 1.1, Troponin I < 0.02, Total Protein 8.3 H, Albumin 4.2, Globulin 4.1 H, Albumin/ Globulin Ratio 1.0 L, TSH 1.15, Thyroxine (T4) 11.1, WBC 6.4, RBC 5.28, Hgb 16.0, Hct 46.4, MCV 88.0, RDW 13.3, Plt Count 253, MPV 6.8 L, Gran % 65.0, Gran # 4.1, Lymphocytes % 26.1, Monocytes % 6.8, Eosinophils % 1.6, Basophils % 0.5, Lymphocytes # 1.7, Monocytes # 0.4, Eosinophils # 0.1, Basophils # 0.0, PUBS MCHC 34.4, MCH 30.3 Current Medication Orders Sig/Leticia Start time Last Medication Dose Route Stop Time Status Admin Sodium Chloride 10 ML PRN PRN 06/18 030 AC IV 06/19 257 Orders Procedure Date/time Status ELECTROCARDIOGRAM REQUEST 06/18 257 Active IV SALINE LOCK 06/18 257 Active URINALYSIS/COMPLETE 06/18 257 Complete THYROID STIMULATING HORMONE 06/18 257 Complete THYROXINE (T4) 06/18 257 Complete DRUG ABUSE SCREEN (TRIAGE) 06/18 257 Complete COMPLETE METABOLIC PANEL 06/18 257 Complete CBC WITH AUTO DIFF 06/18 257 Complete CARDIAC ENZYMES 06/18 257 Complete 12 LEAD EKG-MAYLIN (INITIAL) 06/18 249 Active CM/EKG CM/radiation therapy technician Rhythm Sinus Tachycardia EKG no EKG for comparison Departure Departure Time of Disposition 0428 Disposition DC Home or Self Care(routine) Clinical Impression Primary Impression: Heart palpitations Condition STABLE Patient Instructions DI for Palpitations Additional Instructions see pcp for follow up and limit energy drinks Discharge Counseling Counseled pt/family regarding diagnosis, test results, follow up needs Prescriptions Current Visit Scripts No Known Home Medications ED Critical Care [place] Care No at 0432
[2017-06-18 04:36] VITALS: BP 157/100
== END 2017-06-18 04:38 | disposition home or self-care (01) ==
LOC: ER 02:51
PROVIDERS: Emergency Medicine
DX: R00.2 Palpitations (principal)